=== PATIENT | female | born 1995 | race Caucasian/White ===

== ENCOUNTER → 2016-12-09 | Outpatient (CLI) | payer OTHER ==
--- NOTE | 2016-12-09 10:02 | DIAGNOSTIC IMAGING REPORT ---
LEFT ANKLE 3 VIEWS HISTORY: LEFT ANKLE PAIN; INSTABILITY S/P SURGERY COMPARISON: Left ankle 05/22/2015. FINDINGS: There is no fracture or dislocation. Soft tissues are unremarkable. No radiopaque foreign bodies. IMPRESSION: No fractures. Electronically signed by: Wayne Miller M.D. 12/09/2016 10:01 AM Dictated Date/Time: 12/09/2016 10:00 AM
== END | disposition home or self-care (01) ==
LOC: C.RDSM 12:29
PROVIDERS: ATTEND Orthopaedic Surgery Sports Medicine
DX: M25.572 Pain in left ankle and joints of left foot (principal)

== ENCOUNTER → 2017-06-18 | Outpatient (CLI) | payer BC, OTHER ==
--- NOTE | 2017-06-18 14:20 | DIAGNOSTIC IMAGING REPORT ---
LUMBAR SPINE W/O CONTRAST HISTORY: Pain. Neuropathy. M54.5 TECHNIQUE: Multiplanar multisequence MRI of the lumbar spine was performed without the use of contrast. COMPARISON: None. FINDINGS: For the purpose of the report the L5-S1 disc space will be located on axial image of . Normal signal characteristics the vertebral bodies as well as intervertebral disc. L1-L2: No significant central canal or neural foraminal narrowing. L2-L3: No significant central canal or neural foraminal narrowing. L3-L4: No significant central canal or neural foraminal narrowing. L4-L5: No significant central canal or neural foraminal narrowing. L5-S1: No significant central canal or neural foraminal narrowing. IMPRESSION: Normal study The above report was generated using voice recognition software. It may contain grammatical, syntax or spelling errors. Electronically signed by: Chilo Samayoa M.D. 06/18/2017 2:19 PM Dictated Date/Time: 06/18/2017 2:17 PM
== END | disposition home or self-care (01) ==
LOC: C.MRI 13:36
PROVIDERS: ATTEND Family Medicine
DX: M54.5 Low back pain (principal)